=== PATIENT | male | born 1990 | race Caucasian/White ===

== ENCOUNTER 2017-04-29 18:40 | Emergency (ER) | payer OTHER ==
[2017-04-29 18:45] VITALS: BP 127/72
--- NOTE | 2017-04-29 19:29 | RAD ---
Indication: RIGHT ankle pain following twisting injury. Comparison: No relevant prior exams available on the [facility] PACS for comparison. Technique: AP, mortise, and lateral views RIGHT ankle. Report: Normal articular alignment. Negative for fracture. Unremarkable soft tissue contours. IMPRESSION: Negative exam.
--- NOTE | 2017-04-29 19:43 | ED ---
Lower Extremity - HPI Summary HPI Summary: 26M presents with right ankle pain. He was playing soccer and twisted his ankle. He was able to ambulate afterwards. He went home and took a nap and says after he was unable to bear weight on the area. He has no history of fracture but has sprained the ankle multiple times. He took advil. pain is 4/ 10. is edema to the area. no other injury. - History of Current Complaint Chief Complaint: EDExtremityLower Stated Complaint: RT ANKLE INJURY Time Seen by Provider: 04/29/17 18:47 Pain Intensity: 7 - Allergies/Home Medications Allergies/Adverse Reactions: Allergies Allergy/AdvReac Type Severity Reaction Status Date / Time Latex Allergy Rash Verified 04/29/17 18:45 PMH/Surg Hx/FS Hx/Imm Hx Endocrine/Hematology History: Denies: Hx Anticoagulant Therapy Cardiovascular History: Denies: Hx Hypertension Infectious Disease History: No Infectious Disease History: Denies: Traveled Outside the [place] in Last 30 Days - Family History Known Family History: Negative: Hypertension - Social History Alcohol Use: Daily Substance Use Type: Reports: Marijuana Substance Use Comment - Amount & Last Used: q six months Smoking Status (MU): Current Every Day Smoker Review of Systems Negative: Fever Negative: Chest Pain Negative: Shortness Of Breath Positive: Myalgia - right ankle pain All Other Systems Reviewed And Are Negative: Yes Physical Exam Triage Information Reviewed: Yes Vital Signs On Initial Exam: Initial Vitals Temp Pulse Resp BP Pulse Ox 98.0 F 72 16 127/72 98 04/29/17 18:42 04/29/17 18:42 04/29/17 18:42 04/29/17 18:42 04/29/17 18:42 Vital Signs Reviewed: Yes Appearance: Positive: Well-Appearing Skin: Positive: Warm, Dry Head/Face: Positive: Normal Head/Face Inspection Eyes: Positive: Normal, Conjunctiva Clear Respiratory/Lung Sounds: Positive: Clear to Auscultation, Breath Sounds Present Cardiovascular: Positive: Normal, RRR Musculoskeletal: Positive: Strength/ROM Intact - right ankle, Edema Right - ankle, Other - good pulses, capillary refill<2 secs, sensation grossly intact Neurological: Positive: Normal Psychiatric: Positive: Normal - [place] Coma Scale Coma Scale Total: 15 Diagnostics - Vital Signs Vital Signs Temp Pulse Resp BP Pulse Ox 04/29/17 18:42 98.0 F 72 16 127/72 98 - Laboratory Lab Statement: Any lab studies that have been ordered have been reviewed, and results considered in the medical decision making process. - Radiology ankle Xray Interpretation: No Acute Changes Radiology Interpretation Completed By: Radiologist Lower Extremity Course/Dx - Course Course Of Treatment: 26M presents with right ankle pain. He was playing soccer and twisted his ankle. He was able to ambulate afterwards. He went home and took a nap and says after he was unable to bear weight on the area. He has no history of fracture but has sprained the ankle multiple times. He took advil. pain is 4/10. is edema to the area. no other injury. on exam neurovascular intact. xray normal. will treat with RICE. patient understands and agrees with plan. - Diagnoses Differential Diagnosis/HQI/PQRI: Positive: Fracture (Closed), Sprain, Strain Provider Diagnoses: Right ankle sprain Discharge - Discharge Plan Condition: Good Disposition: HOME Patient Education Materials: Ankle Sprain (ED) Referrals: Edilia Sorensen MD [Primary Care Provider] - Additional Instructions: Stay off ankle as much as possible Ice, elevate, keep in RORO Ibuprofen every 6 hours for pain Follow up with primary if no improvement Return to ED if develop or any new or worsening symptoms
== END 2017-04-29 20:25 | disposition home or self-care (01) ==
LOC: ED 18:40
DX: S93.401A Sprain of unspecified ligament of right ankle, initial encounter (principal); M25.571 Pain in right ankle and joints of right foot; F17.210 Nicotine dependence, cigarettes, uncomplicated; X50.9XXA Other and unspecified overexertion or strenuous movements or postures, initial encounter; Y93.66 Activity, soccer; Y92.9 Unspecified place or not applicable
CPT/HCPCS: 99282